=== PATIENT | male | born 1950 | race Caucasian/White ===

== ENCOUNTER 2017-03-28 06:10 | Day surgery (SDC) | payer OTHER | END 2017-03-28 10:45 | disposition home or self-care (01) | LOC: AMB-ENDOS 06:10 → CIR.AMB 09:41 → AMB-ENDOS 10:45 | DX: K55.20 Angiodysplasia of colon without hemorrhage (principal); K64.0 First degree hemorrhoids; K57.30 Diverticulosis of large intestine without perforation or abscess without bleeding ==

== ENCOUNTER 2017-04-04 06:00 | Day surgery (SDC) | payer OTHER ==
[2017-04-04] MEDS ORDERED: OMEPRAZOLE20 MG PO (08:20)
== END 2017-04-04 09:25 | disposition home or self-care (01) ==
LOC: AMB-ENDOS 06:00 → EDBD 09:00 → AMB-ENDOS 09:00
DX: K29.50 Unspecified chronic gastritis without bleeding (principal)

== ENCOUNTER 2019-04-23 05:20 | Day surgery (SDC) | payer OTHER ==
[~2019-04-23 05:20] MED LIST: OMEPRAZOLE20 MG PO
== END 2019-04-23 09:40 | disposition home or self-care (01) ==
LOC: AMB-ENDOS 05:20
DX: K63.5 Polyp of colon (principal); K64.0 First degree hemorrhoids; K55.20 Angiodysplasia of colon without hemorrhage; Z12.11 Encounter for screening for malignant neoplasm of colon